=== PATIENT | male | born 1935 | race Caucasian/White ===

== ENCOUNTER 2016-03-19 07:42 | Outpatient (CLI) | payer MEDICARE, OTHER ==
[2014-10-15 10:21] VITALS: O2SAT 95
== END 2016-03-19 07:43 | disposition home or self-care (01) | DRG 561 ==
LOC: CONVCARE 07:42
PROVIDERS: ATTEND Orthopaedic Surgery
DX: S62.300D Unspecified fracture of second metacarpal bone, right hand, subsequent encounter for fracture with routine healing (principal)
CPT/HCPCS: 73130

== ENCOUNTER 2016-04-30 10:36 | Outpatient (CLI) | payer MEDICARE, OTHER ==
[2014-10-15 10:21] VITALS: O2SAT 95
== END 2016-04-30 10:37 | disposition home or self-care (01) | DRG 561 ==
LOC: CONVCARE 10:36
PROVIDERS: ATTEND Orthopaedic Surgery
DX: S62.320D Displaced fracture of shaft of second metacarpal bone, right hand, subsequent encounter for fracture with routine healing (principal)
CPT/HCPCS: 73130

== ENCOUNTER 2017-01-01 09:31 | Outpatient (CLI) | payer MEDICARE, OTHER ==
[2014-10-15 10:21] VITALS: O2SAT 95
== END 2017-01-01 09:32 | disposition home or self-care (01) | DRG 556 ==
LOC: CONVCARE 09:31
PROVIDERS: ATTEND Orthopaedic Surgery
DX: M25.561 Pain in right knee (principal); M62.81 Muscle weakness (generalized); Z96.651 Presence of right artificial knee joint; R20.0 Anesthesia of skin; Z91.81 History of falling
CPT/HCPCS: 73562

== ENCOUNTER 2018-09-06 08:24 | Day surgery (SDC) | payer OTHER ==
[2018-09-06] MEDS ORDERED: ACETAZOLAMIDE 250 MG PO ONE (08:32)
[2018-09-06] MEDS: TETRACAINE HCL 0.5 % 1 DROP SOL ONE ×3 (08:46→09:58)
[2018-09-06] MEDS: PHENYLEPHRINE HCL 10% OPHTHAL SOL ONE ×2 (08:46→09:01)
[2018-09-06] MEDS: KETOROLAC 0.5% OPTH 60 DROP SOL ONE ×2 (08:47→09:03)
[2018-09-06] MEDS: CYCLOPENTOLATE 1% SOL ONE ×2 (08:47→09:02)
[2018-09-06 08:51] VITALS: RESP 18
[2018-09-06] MEDS ORDERED: MIDAZOLAM 2 MG/2 ML SOL ONE (09:35)
[2018-09-06] MEDS ORDERED: FENTANYL 100MCG/2ML SOL ONE (09:35)
[2018-09-06] MEDS ORDERED: DEXAMETHASONE 20 MG/5 ML (4 MG/ML SOL) ONE (09:50)
[2018-09-06] MEDS ORDERED: BSS 500 ML 500 ML IR ONE (09:50)
[2018-09-06] MEDS ORDERED: LIDOCAINE HCL 1% MPF 30 SOL ONE (09:50)
[2018-09-06] MEDS ORDERED: POVIDONE IODINE 5% SOL ONE (09:50)
[2018-09-06] MEDS ORDERED: MOXIFLOXACIN HCL OPHTH 5 MG/ML SOL ONE (09:50)
[2018-09-06 10:34] VITALS: BP 126/76; PULSE 76; TEMP 97.5; O2SAT 99
== END 2018-09-06 10:50 | disposition home or self-care (01) | DRG 639 ==
LOC: SURG 08:24
PROVIDERS: ATTEND Ophthalmology
DX: E11.9 Type 2 diabetes mellitus without complications (principal)
CPT/HCPCS: 82962; J1100; J2250; J3010; A9270-GY; J2001